=== PATIENT | female | born 1955 | race Caucasian/White ===

== ENCOUNTER 2017-08-23 16:08 | Emergency (ER) | payer MEDICARE, OTHER ==
[~2017-08-23] VITALS: Ht 175.3 cm; Wt 93.0 kg
[~2017-08-23 16:08] MED LIST: ASPI81EC PO; AZIT250 PO; Amiodarone HCl200 MG PO; Bactrim Ds Tab1 EACH PO; CALCIT950; CARV25 PO; CIPRSO BOTHEYES; CLOBETTC TOP; CLOP75 PO; CRESTOR; Cipro250 MG PO; Cleocin HCl300 MG PO; Crestor20 MG PO; ERGO50000 PO; EXEN10PI; Flonase 0.05% N16 GM; GLIP5ER PO; Keflex500 MG PO; LISI5 PO; LYRICA; Lyrica50 MG PO; METF500C PO; Mucinex600 MG PO; OXYC5 PO; PIOG15 PO; PREG25 PO; PREG50 PO; Pyridium100 MG PO; Pyridium200 MG PO; SOLI5 PO; Ultram50 MG PO; ZOLOFT; Zithromax250 MG PO; Zoloft50 MG PO
[2017-08-23] MEDS ORDERED: CEPH500 PO (16:44)
[2017-08-23 16:49] LABS: Source, Urine Clean Catch
[2017-08-23 16:55] LABS: Appearance, Urine Hazy (Clear); Bilirubin, Urine Neg (Neg); Blood, Urine 1+ (Neg); Color, Urine Yellow (P-Yellow); Glucose Qualitative, Urine Neg (Neg); Ketones, Urine Neg (Neg); Leukocyte Esterase, Urine 3+ (Neg); Nitrite, Urine Neg (Neg); Protein, Urine Neg (Neg); Specific Gravity, Urine 1.015 (1.003-1.022); Urobilinogen, Urine 1+ (Normal); pH, Urine 6.5 (5.0-8.0)
[2017-08-23 17:05] LABS: Calcium Oxalate Crystals Many /hpf
[2017-08-23 17:06] LABS: Squamous Epithelial Cells Mod /hpf (Few)
[2017-08-23 17:07] LABS: Bacteria Rare /hpf
[2017-09-07] MEDS ORDERED: CARV6.25 PO (11:57)
[2017-09-07] MEDS ORDERED: TRAM50 PO (12:02)
[2017-09-07] MEDS ORDERED: Flonase 0.05% N16 GM (12:03)
[2017-09-07] MEDS ORDERED: ELIQUIS5 MG PO (12:04)
== END 2017-08-23 16:55 | disposition home or self-care (01) ==
LOC: ER 16:08
PROVIDERS: Physician Assistant
DX: N39.0 Urinary tract infection, site not specified (principal); F32.9 Major depressive disorder, single episode, unspecified; I10 Essential (primary) hypertension; E11.9 Type 2 diabetes mellitus without complications; E78.5 Hyperlipidemia, unspecified; F17.200 Nicotine dependence, unspecified, uncomplicated; Z88.8 Allergy status to other drugs, medicaments and biological substances; Z88.5 Allergy status to narcotic agent; Z79.84 Long term (current) use of oral hypoglycemic drugs; Z79.82 Long term (current) use of aspirin; Z79.899 Other long term (current) drug therapy; Z95.1 Presence of aortocoronary bypass graft; Z95.5 Presence of coronary angioplasty implant and graft; Z90.710 Acquired absence of both cervix and uterus
CPT/HCPCS: 81001; 87086; 99283

== ENCOUNTER 2017-09-08 07:39 | Day surgery (SDC) | payer MEDICARE, OTHER ==
[~2017-09-08] VITALS: Ht 172.7 cm; Wt 95.5 kg
[~2017-09-08 07:39] MED LIST changes: +CARV6.25 PO; +CEPH500 PO; +ELIQUIS5 MG PO; +TRAM50 PO
== END 2017-09-08 10:09 | disposition home or self-care (01) ==
LOC: MHTC 07:39
PROC: 0JPT02Z Removal of Monitoring Device from Trunk Subcutaneous Tissue and Fascia, Open Approach (ICD-10-PCS; principal; 2017-09-08)
DX: Z45.09 Encounter for adjustment and management of other cardiac device (principal); I48.91 Unspecified atrial fibrillation; F17.210 Nicotine dependence, cigarettes, uncomplicated; E11.9 Type 2 diabetes mellitus without complications; I25.10 Atherosclerotic heart disease of native coronary artery without angina pectoris
CPT/HCPCS: 33284; J0690; J7040

== ENCOUNTER → 2017-11-09 | Outpatient (CLI) | payer MEDICARE | END | disposition home or self-care (01) | LOC: LAB SHORT 16:27 → LAB 16:27 | DX: R30.0 Dysuria (principal) | CPT/HCPCS: 87077; 87086; 87186 ==

== ENCOUNTER 2017-12-09 19:29 | Emergency (ER) | payer MEDICARE ==
[~2017-12-09] VITALS: Ht 172.7 cm; Wt 93.0 kg
[2017-12-09 20:01] LABS: Source, Urine Clean Catch
[2017-12-09 20:05] LABS: Blood, Urine 4+ (Neg); Glucose Qualitative, Urine Neg (Neg); Ketones, Urine Neg (Neg); Leukocyte Esterase, Urine 3+ (Neg); Nitrite, Urine Pos (Neg); Protein, Urine 1+ (Neg); Specific Gravity, Urine 1.015 (1.003-1.022); Urobilinogen, Urine 3+ (Normal)
[2017-12-09 20:13] LABS: Appearance, Urine Hazy (Clear); Bilirubin, Urine 2+ (Neg); Color, Urine Orange (P-Yellow)
[2017-12-09 20:14] LABS: White Blood Cells, Urine TNTC /hpf (0-5)
[2017-12-09 20:15] LABS: Bacteria Mod /hpf; Squamous Epithelial Cells Few /hpf (Few)
[2017-12-09] MEDS ORDERED: Bactrim Ds Tab1 EACH PO (20:56)
== END 2017-12-09 21:01 | disposition home or self-care (01) ==
LOC: ER 19:29
PROVIDERS: Nurse Practitioner Family
DX: N39.0 Urinary tract infection, site not specified (principal); Z88.8 Allergy status to other drugs, medicaments and biological substances; Z88.5 Allergy status to narcotic agent; Z79.84 Long term (current) use of oral hypoglycemic drugs; Z79.899 Other long term (current) drug therapy; Z86.73 Personal history of transient ischemic attack (TIA), and cerebral infarction without residual deficits; F32.9 Major depressive disorder, single episode, unspecified; I10 Essential (primary) hypertension; E78.5 Hyperlipidemia, unspecified; E11.9 Type 2 diabetes mellitus without complications; F17.200 Nicotine dependence, unspecified, uncomplicated
CPT/HCPCS: 81001; 87077; 87086; 87186; 99283

== ENCOUNTER 2018-03-20 16:04 | Emergency (ER) | payer MEDICARE, OTHER ==
[~2018-03-20] VITALS: Ht 172.7 cm; Wt 90.7 kg
[2018-03-20] MEDS ORDERED: ELIQUIS5 MG PO (16:28)
[2018-03-20] MEDS ORDERED: CEPH500 PO (16:40)
[2018-03-20 16:44] LABS: Source, Urine Clean Catch
[2018-03-20 17:05] LABS: Appearance, Urine Hazy (Clear); Bilirubin, Urine Neg (Neg); Blood, Urine 2+ (Neg); Color, Urine Yellow (P-Yellow); Glucose Qualitative, Urine Neg (Neg); Ketones, Urine 1+ (Neg); Leukocyte Esterase, Urine 3+ (Neg); Nitrite, Urine Neg (Neg); Protein, Urine 2+ (Neg); Urobilinogen, Urine 1+ (Normal)
[2018-03-20 18:53] LABS: White Blood Cells, Urine 25-50 /hpf (0-5)
[2018-03-20 18:54] LABS: Bacteria Mod /hpf; Squamous Epithelial Cells Few /hpf (Few)
== END 2018-03-20 16:41 | disposition home or self-care (01) ==
LOC: ER 16:04
PROVIDERS: Physician Assistant
DX: N39.0 Urinary tract infection, site not specified (principal); F32.9 Major depressive disorder, single episode, unspecified; I10 Essential (primary) hypertension; E78.5 Hyperlipidemia, unspecified; E11.9 Type 2 diabetes mellitus without complications; F17.200 Nicotine dependence, unspecified, uncomplicated; Z88.8 Allergy status to other drugs, medicaments and biological substances; Z88.5 Allergy status to narcotic agent; Z79.899 Other long term (current) drug therapy; Z79.84 Long term (current) use of oral hypoglycemic drugs
CPT/HCPCS: 81001; 87086; 99283

== ENCOUNTER 2018-08-20 12:59 | Emergency (ER) | payer MEDICARE, OTHER ==
[~2018-08-20] VITALS: Ht 165.1 cm; Wt 72.6 kg
[2018-08-20 13:40] LABS: BASOPHILS ABSOLUTE AUTO 0.02 K/mm3 (0.00-0.23); BASOPHILS PERCENT AUTO 0 % (0-2); EOSINOPHILS ABSOLUTE AUTO 0.07 K/mm3 (0.00-0.68); EOSINOPHILS PERCENT AUTO 1 % (0-6); Hematocrit 38.8 % (33.0-51.0); Hemoglobin 12.6 g/dL (11.5-16.0); IMMATURE GRAN ABSOLUTE AUTO 0.01 K/mm3 (0.00-0.10); IMMATURE GRAN PERCENT AUTO 0 % (0-1); LYMPHOCYTES PERCENT AUTO 34 % (21-46); MONOCYTES ABSOLUTE AUTO 0.47 K/mm3 (0.16-1.47); MONOCYTES PERCENT AUTO 8 % (4-13); Mean Corpuscular HGB 29.7 pg (26.0-34.0); Mean Corpuscular HGB Conc 32.5 g/dL (31.5-36.5); Mean Corpuscular Volume 92 fL (80-100); NEUTROPHILS ABSOLUTE AUTO 3.14 K/mm3 (1.96-9.15); NEUTROPHILS PERCENT AUTO 56 % (41-73); Platelet Count 160 K/mm3 (150-400); RDW Coefficient Variation 13.2 % (11.7-14.2); RDW Standard Deviation 44.8 fL (35.1-46.3); Red Blood Cell Count 4.24 M/mm3 (3.80-5.20); White Blood Cell Count 5.61 K/mm3 (4.00-11.30)
[2018-08-20 14:10] LABS: Alanine Aminotransfer (ALT/SGP 17 U/L (12-78); Albumin, Blood 3.6 g/dL (3.4-5.0); Albumin/Globulin Ratio 1.1 (0.8-1.8); Alk Phos 44 U/L (50-136); Anion Gap 8 mmol/L (6-16); Aspartate Aminotrans (AST/SGOT 19 U/L (12-37); Bilirubin, Total 0.5 mg/dL (0.1-1.0); Blood Urea Nitrogen 13 mg/dL (8-24); Bun/Creatinine Ratio 17.9 (12.0-20.0); CO2, Blood 26 mmol/L (21-32); Chloride, Blood 109 mmol/L (98-108); Creatinine, Blood 0.73 mg/dL (0.40-1.00); Globulin, Blood 3.2 g/dL (2.2-4.0); Glomerular Filtration Rate >60 (60-); Glucose, Blood 116 mg/dL (70-99); Potassium, Blood 4.4 mmol/L (3.5-5.5); Sodium, Blood 143 mmol/L (136-145); Total Protein, Blood 6.8 g/dL (6.4-8.2)
[2018-08-20] MEDS ORDERED: ALBU90OI INH (14:33)
[2018-08-20] MEDS ORDERED: Prednisone20 MG PO (14:33)
== END 2018-08-20 15:22 | disposition home or self-care (01) ==
LOC: ER 12:59
PROVIDERS: Emergency Medicine
DX: J40 Bronchitis, not specified as acute or chronic (principal); F17.200 Nicotine dependence, unspecified, uncomplicated; F32.9 Major depressive disorder, single episode, unspecified; I10 Essential (primary) hypertension; E78.5 Hyperlipidemia, unspecified; E11.9 Type 2 diabetes mellitus without complications; Z86.73 Personal history of transient ischemic attack (TIA), and cerebral infarction without residual deficits; Z88.5 Allergy status to narcotic agent; Z88.8 Allergy status to other drugs, medicaments and biological substances; Z79.899 Other long term (current) drug therapy; Z79.84 Long term (current) use of oral hypoglycemic drugs
CPT/HCPCS: 36415; 71046; 80053; 83880; 85025; 93005; 93010; 94640; 99284-25

== ENCOUNTER → 2018-08-28 | Outpatient (CLI) | payer MEDICARE, OTHER ==
[~2018-08-28] MED LIST changes: +ALBU90OI INH; +Prednisone20 MG PO
== END | disposition home or self-care (01) ==
LOC: LAB 13:15 → LAB SHORT 13:15
DX: R30.0 Dysuria (principal)
CPT/HCPCS: 87077; 87086; 87186

== ENCOUNTER → 2018-10-26 | Outpatient (CLI) | payer MEDICARE | END | disposition home or self-care (01) | LOC: LAB 18:00 → LAB SHORT 18:00 | DX: R30.0 Dysuria (principal) | CPT/HCPCS: 87077; 87086; 87186 ==

== ENCOUNTER → 2020-03-16 | Outpatient (CLI) | payer OTHER ==
[~2020-03-16] MED LIST changes: +Colace100 MG PO; +GLIP5 PO; +Magnesium Citr296 ML PO; +Oxybutynin Chlo15 MG PO; +ROSUVASTATIN CA20 MG PO
[2020-03-16 19:21] LABS: Blood, Urine 5+ (Neg); Glucose Qualitative, Urine Neg (Neg); Ketones, Urine Neg (Neg); Leukocyte Esterase, Urine 3+ (Neg); Nitrite, Urine Pos (Neg); Protein, Urine 2+ (Neg); Urobilinogen, Urine 3+ (Normal)
[2020-03-16 19:29] LABS: Bilirubin, Urine 3+ (Neg); Color, Urine Orange (P-Yellow)
[2020-03-16 19:30] LABS: Appearance, Urine Cloudy (Clear); Bacteria Many /hpf; Red Blood Cells, Urine TNTC /hpf (0-2); Squamous Epithelial Cells Few /hpf (Few); Transitional Epithelial Cells Few /hpf (0-Rare); White Blood Cells, Urine TNTC /hpf (0-5)
== END | disposition home or self-care (01) ==
LOC: LAB SHORT 17:58 → LAB 17:58
PROVIDERS: Family Medicine
DX: R30.0 Dysuria (principal)
CPT/HCPCS: 81001; 87077; 87086; 87186

== ENCOUNTER 2020-04-22 17:58 | Emergency (ER) | payer OTHER | END 2020-04-22 19:02 | disposition left against medical advice (07) | LOC: ER 17:58 | DX: Z53.21 Procedure and treatment not carried out due to patient leaving prior to being seen by health care provider (principal) ==

== ENCOUNTER 2021-02-20 10:39 | Day surgery (SDC) | payer OTHER ==
[~2021-02-20] VITALS: Ht 172.7 cm; Wt 87.8 kg
[~2021-02-20 10:39] MED LIST changes: +AMIODARONE HCL200 M1 PO; +ELIQUIS5 M2 PO; +GLUCOPHAGE1000 M1 PO; +LOSA50 PO; +NITR100CA PO
== END 2021-02-20 12:22 | disposition home or self-care (01) ==
LOC: ORSCSDS 10:39
PROVIDERS: Internal Medicine Gastroenterology
PROC: 0DBN8ZX Excision of Sigmoid Colon, Via Natural or Artificial Opening Endoscopic, Diagnostic (ICD-10-PCS; principal; 2021-02-20 11:45)
PROC: 0DBH8ZX Excision of Cecum, Via Natural or Artificial Opening Endoscopic, Diagnostic (ICD-10-PCS; principal; 2021-02-20 11:45)
DX: R19.4 Change in bowel habit (principal); D12.0 Benign neoplasm of cecum; D12.5 Benign neoplasm of sigmoid colon; K64.8 Other hemorrhoids; Z86.010 Personal history of colon polyps; F17.210 Nicotine dependence, cigarettes, uncomplicated; I25.10 Atherosclerotic heart disease of native coronary artery without angina pectoris; E11.9 Type 2 diabetes mellitus without complications; I48.0 Paroxysmal atrial fibrillation; I10 Essential (primary) hypertension; E78.5 Hyperlipidemia, unspecified; Z79.01 Long term (current) use of anticoagulants; Z79.84 Long term (current) use of oral hypoglycemic drugs; Z79.899 Other long term (current) drug therapy
CPT/HCPCS: 82947; 88305; J2405; J2704; J7120

== ENCOUNTER 2021-05-21 09:55 | Emergency (ER) | payer OTHER ==
[~2021-05-21] VITALS: Ht 170.2 cm; Wt 90.7 kg
[2021-05-21 11:17] LABS: BASOPHILS ABSOLUTE AUTO 0.05 K/mm3 (0.00-0.23); BASOPHILS PERCENT AUTO 1 % (0-2); EOSINOPHILS ABSOLUTE AUTO 0.11 K/mm3 (0.00-0.68); EOSINOPHILS PERCENT AUTO 1 % (0-6); Hematocrit 43.1 % (33.0-51.0); Hemoglobin 13.6 g/dL (11.5-16.0); IMMATURE GRAN ABSOLUTE AUTO 0.06 K/mm3 (0.00-0.10); IMMATURE GRAN PERCENT AUTO 1 % (0-1); LYMPHOCYTES ABSOLUTE AUTO 2.17 K/mm3 (0.84-5.20); LYMPHOCYTES PERCENT AUTO 26 % (21-46); MONOCYTES ABSOLUTE AUTO 0.37 K/mm3 (0.16-1.47); MONOCYTES PERCENT AUTO 5 % (4-13); Mean Corpuscular HGB 29.4 pg (26.0-34.0); Mean Corpuscular HGB Conc 31.6 g/dL (31.5-36.5); Mean Corpuscular Volume 93 fL (80-100); NEUTROPHILS ABSOLUTE AUTO 5.52 K/mm3 (1.96-9.15); NEUTROPHILS PERCENT AUTO 67 % (41-73); RDW Coefficient Variation 13.9 % (11.7-14.2); RDW Standard Deviation 47.4 fL (35.1-46.3); Red Blood Cell Count 4.63 M/mm3 (3.80-5.20); White Blood Cell Count 8.28 K/mm3 (4.00-11.30)
[2021-05-21 11:26] LABS: Alanine Aminotransfer (ALT/SGP 16 U/L (12-78); Albumin, Blood 3.5 g/dL (3.4-5.0); Alk Phos 49 U/L (50-136); Anion Gap 6 mmol/L (6-16); Aspartate Aminotrans (AST/SGOT 10 U/L (12-37); Bilirubin, Total 0.3 mg/dL (0.1-1.0); Blood Urea Nitrogen 14 mg/dL (8-24); Bun/Creatinine Ratio 24.2 (12.0-20.0); CO2, Blood 26 mmol/L (21-32); Calcium, Blood 9.3 mg/dL (8.5-10.1); Chloride, Blood 107 mmol/L (98-108); Creatinine, Blood 0.58 mg/dL (0.40-1.00); Globulin, Blood 3.4 g/dL (2.2-4.0); Glomerular Filtration Rate >60 (60-); Glucose, Blood 178 mg/dL (70-99); Potassium, Blood 4.2 mmol/L (3.5-5.5); Sodium, Blood 139 mmol/L (136-145); Total Protein, Blood 6.9 g/dL (6.4-8.2); Troponin I <0.015 ng/mL (0.000-0.040)
[2021-05-21 11:42] LABS: Mean Platelet Volume 10.7 fL (9.1-12.4); Platelet Count 245 K/mm3 (150-400)
[2021-05-21] MEDS ORDERED: PIOG15 PO (13:19)
== END 2021-05-21 13:40 | disposition home or self-care (01) ==
LOC: ER 09:55
PROVIDERS: Physician Assistant
DX: I48.0 Paroxysmal atrial fibrillation (principal); I10 Essential (primary) hypertension; E78.5 Hyperlipidemia, unspecified; E11.9 Type 2 diabetes mellitus without complications; F17.210 Nicotine dependence, cigarettes, uncomplicated; Z88.6 Allergy status to analgesic agent; Z88.5 Allergy status to narcotic agent; Z88.8 Allergy status to other drugs, medicaments and biological substances; Z88.1 Allergy status to other antibiotic agents; Z79.899 Other long term (current) drug therapy; Z79.84 Long term (current) use of oral hypoglycemic drugs
CPT/HCPCS: 71046; 80053; 84443; 84484; 85025; 93005; 93010; 99284-25

== ENCOUNTER 2021-06-24 12:41 | Emergency (ER) | payer OTHER ==
[~2021-06-24] VITALS: Ht 170.2 cm; Wt 90.7 kg
[2021-06-24] MEDS ORDERED: TRAM50 PO (14:20)
== END 2021-06-24 14:34 | disposition home or self-care (01) ==
LOC: ER 12:41
DX: S42.201A Unspecified fracture of upper end of right humerus, initial encounter for closed fracture (principal); E11.9 Type 2 diabetes mellitus without complications; E78.5 Hyperlipidemia, unspecified; I10 Essential (primary) hypertension; Z86.73 Personal history of transient ischemic attack (TIA), and cerebral infarction without residual deficits; F17.210 Nicotine dependence, cigarettes, uncomplicated; Z88.5 Allergy status to narcotic agent; Z88.6 Allergy status to analgesic agent; Z88.8 Allergy status to other drugs, medicaments and biological substances; Z79.899 Other long term (current) drug therapy; Z79.84 Long term (current) use of oral hypoglycemic drugs; W18.30XA Fall on same level, unspecified, initial encounter
CPT/HCPCS: 29105; 73030; 73060; 96374; 96375; 99284-25; A9270; J2270; J2405

== ENCOUNTER 2021-09-09 21:17 | Observation (INO) | payer OTHER ==
[~2021-09-09] VITALS: Ht 172.7 cm; Wt 88.5 kg
[~2021-09-09 21:17] MED LIST changes: +Oxybutynin Chlor5 M1 PO
[2021-09-09 22:18] LABS: BASOPHILS ABSOLUTE AUTO 0.02 K/mm3 (0.00-0.23); BASOPHILS PERCENT AUTO 0 % (0-2); EOSINOPHILS PERCENT AUTO 0 % (0-6); Hematocrit 40.9 % (33.0-51.0); Hemoglobin 13.5 g/dL (11.5-16.0); IMMATURE GRAN PERCENT AUTO 1 % (0-1); LYMPHOCYTES ABSOLUTE AUTO 1.07 K/mm3 (0.84-5.20); LYMPHOCYTES PERCENT AUTO 10 % (21-46); MONOCYTES ABSOLUTE AUTO 0.49 K/mm3 (0.16-1.47); MONOCYTES PERCENT AUTO 5 % (4-13); Mean Corpuscular HGB 29.9 pg (26.0-34.0); Mean Corpuscular Volume 91 fL (80-100); Mean Platelet Volume 10.7 fL (9.1-12.4); NEUTROPHILS ABSOLUTE AUTO 8.81 K/mm3 (1.96-9.15); NEUTROPHILS PERCENT AUTO 84 % (41-73); Platelet Count 248 K/mm3 (150-400); RDW Coefficient Variation 13.5 % (11.7-14.2); RDW Standard Deviation 44.7 fL (35.1-46.3); Red Blood Cell Count 4.52 M/mm3 (3.80-5.20); White Blood Cell Count 10.49 K/mm3 (4.00-11.30)
[2021-09-09 22:35] LABS: Anion Gap 10 mmol/L (6-16); Blood Urea Nitrogen 21 mg/dL (8-24); Bun/Creatinine Ratio 32.2 (12.0-20.0); CO2, Blood 25 mmol/L (21-32); Calcium, Blood 9.6 mg/dL (8.5-10.1); Chloride, Blood 102 mmol/L (98-108); Creatinine, Blood 0.65 mg/dL (0.40-1.00); Glomerular Filtration Rate >60 (60-); Glucose, Blood 316 mg/dL (70-99); Potassium, Blood 4.4 mmol/L (3.5-5.5); Sodium, Blood 137 mmol/L (136-145)
[2021-09-10 05:25] LABS: BASOPHILS ABSOLUTE AUTO 0.01 K/mm3 (0.00-0.23); BASOPHILS PERCENT AUTO 0 % (0-2); EOSINOPHILS ABSOLUTE AUTO 0.02 K/mm3 (0.00-0.68); EOSINOPHILS PERCENT AUTO 0 % (0-6); Hemoglobin 12.3 g/dL (11.5-16.0); IMMATURE GRAN ABSOLUTE AUTO 0.07 K/mm3 (0.00-0.10); IMMATURE GRAN PERCENT AUTO 1 % (0-1); LYMPHOCYTES PERCENT AUTO 28 % (21-46); MONOCYTES ABSOLUTE AUTO 0.67 K/mm3 (0.16-1.47); MONOCYTES PERCENT AUTO 8 % (4-13); Mean Corpuscular HGB 29.6 pg (26.0-34.0); Mean Corpuscular HGB Conc 32.4 g/dL (31.5-36.5); Mean Corpuscular Volume 92 fL (80-100); Mean Platelet Volume 10.6 fL (9.1-12.4); NEUTROPHILS ABSOLUTE AUTO 5.56 K/mm3 (1.96-9.15); NEUTROPHILS PERCENT AUTO 64 % (41-73); Platelet Count 218 K/mm3 (150-400); RDW Coefficient Variation 13.4 % (11.7-14.2); RDW Standard Deviation 45.4 fL (35.1-46.3); Red Blood Cell Count 4.15 M/mm3 (3.80-5.20); White Blood Cell Count 8.73 K/mm3 (4.00-11.30)
[2021-09-10 05:39] LABS: Anion Gap 6 mmol/L (6-16); Blood Urea Nitrogen 21 mg/dL (8-24); Bun/Creatinine Ratio 35.5 (12.0-20.0); CO2, Blood 27 mmol/L (21-32); Chloride, Blood 105 mmol/L (98-108); Creatinine, Blood 0.59 mg/dL (0.40-1.00); Glomerular Filtration Rate >60 (60-); Glucose, Blood 213 mg/dL (70-99); Potassium, Blood 3.9 mmol/L (3.5-5.5); Sodium, Blood 138 mmol/L (136-145)
--- NOTE | 2021-09-10 06:03 | NUR ---
PT CAME IN FROM THE ED DUE TO HER AICD SHOCKING 6 TIMES. AFTER INTERPRETATION DOWN IN THE ED IT LOOKS LIKE HER RHYTHM DURING THE SHOCK WAS VFIB, WHICH WHY THE AICD MUST HAVE GONE OFF. THE PT DOES NOT C/O PAIN, N/V, TINGING SENSATION, OR SOB ON ARRIVAL TO UNIT. PT IS ALERT AND ORIENTED X4. PT TELE MONITORED SHOWING NSR 60-70S. NO ACUTE EVENTS SINCE ADMISSION, CALL LIGHT AND BELONGINGS WITHIN REACH.
[2021-09-10] MEDS ORDERED: Ventolin/Prove6.7 GM INH (15:31)
[2021-09-10] MEDS ORDERED: MONT10T PO (15:32)
[2021-09-10] MEDS ORDERED: OXYCODONE-ACET1 EAC3 PO (15:34)
[2021-09-10] MEDS ORDERED: Carvedilol12.5 MG PO (16:04)
[2021-09-10] MEDS ORDERED: PACERONE PO (16:05)
[2021-09-10] MEDS ORDERED: Amlodipine Bes2.5 MG PO (16:06)
[2021-09-10] MEDS ORDERED: ASPI81CH PO (16:06)
[2021-09-10] MEDS ORDERED: DOXY100 PO (16:08)
[2021-09-10] MEDS ORDERED: NICO21TP TOP (16:08)
[2021-09-10] MEDS ORDERED: PANT40 PO (16:08)
[2021-09-10] MEDS ORDERED: PRED20 PO (16:09)
--- NOTE | 2021-09-10 16:53 | NUR ---
DISCHARGE PATIENT TRANSPORTED VIA WHEELCHAIR TO PRIVATE VEHICLE. DISCHARGE INSTRUCTIONS EXPLAINED TO PATIENT. PATIENT STATED UNDERSTANDING. PACKET SENT WITH PATIENT. IV REMOVED WITHOUT DIFFICULTY. TELE REMOVED WITHOUT DIFFICULTY. MEDICATIONS FAXED TO PREFERRED PHARMACY. BINDER CHAINSTITCH OFFICE TO CALL PATIENT FOR FOLLOW UP. PATIENT ALREADY HAS FOLLOW UP WITH PCP SCHEDULED FOR NEXT WEEK. BELONGINGS SENT WITH PATIENT.
== END 2021-09-10 16:59 | disposition home or self-care (01) ==
LOC: ER 21:17 → MEDS 21:18 → ER 09-10 02:16 → MEDS 09-10 03:07
PROVIDERS: Family Medicine; Physician Assistant; ADMIT Internal Medicine
DX: I48.0 Paroxysmal atrial fibrillation (principal); I25.10 Atherosclerotic heart disease of native coronary artery without angina pectoris; I10 Essential (primary) hypertension; E78.5 Hyperlipidemia, unspecified; E11.51 Type 2 diabetes mellitus with diabetic peripheral angiopathy without gangrene; J44.1 Chronic obstructive pulmonary disease with (acute) exacerbation; F17.210 Nicotine dependence, cigarettes, uncomplicated; Z86.73 Personal history of transient ischemic attack (TIA), and cerebral infarction without residual deficits; Z95.810 Presence of automatic (implantable) cardiac defibrillator; Z95.1 Presence of aortocoronary bypass graft; Z95.5 Presence of coronary angioplasty implant and graft; Z79.82 Long term (current) use of aspirin; Z79.4 Long term (current) use of insulin
CPT/HCPCS: 36415; 71045; 80048; 82947; 83735; 84484; 85025; 93005; 93010; 93306; A9270; J7512

== ENCOUNTER 2022-01-12 22:22 | Emergency (ER) | payer OTHER ==
[~2022-01-12] VITALS: Ht 170.2 cm; Wt 88.5 kg
[~2022-01-12 22:22] MED LIST changes: +ASPI81CH PO; +Amlodipine Bes2.5 MG PO; +Carvedilol12.5 MG PO; +DOXY100 PO; +MONT10T PO; +NICO21TP TOP; +OXYCODONE-ACET1 EAC3 PO; +PANT40 PO; +PRED20 PO; +Ventolin/Prove6.7 GM INH
[2022-01-18] MEDS ORDERED: SERT100 PO (03:38)
[2022-01-18] MEDS ORDERED: 1/2 NS 250ml250 ML (03:38)
== END 2022-01-13 00:47 | disposition home or self-care (01) ==
LOC: ER 22:22
DX: S09.90XA Unspecified injury of head, initial encounter (principal); I10 Essential (primary) hypertension; E78.5 Hyperlipidemia, unspecified; E11.9 Type 2 diabetes mellitus without complications; F17.210 Nicotine dependence, cigarettes, uncomplicated; W19.XXXA Unspecified fall, initial encounter; Z95.1 Presence of aortocoronary bypass graft; Z95.5 Presence of coronary angioplasty implant and graft; Z79.82 Long term (current) use of aspirin; Z79.52 Long term (current) use of systemic steroids; Z79.01 Long term (current) use of anticoagulants; Z79.899 Other long term (current) drug therapy
CPT/HCPCS: 70450; 99283-25

== ENCOUNTER 2022-02-04 05:37 | Day surgery (SDC) | payer OTHER ==
[~2022-02-04] VITALS: Ht 170.2 cm; Wt 86.0 kg
[~2022-02-04 05:37] MED LIST changes: +1/2 NS 250ml250 ML; +SERT100 PO
--- NOTE | 2022-02-04 16:59 | NUR ---
CARE ASSUMPTION/SHIFT SUMMARY THIS RN RECEIVED THE PATIEN FROM THE [facility] VIA PCU BED. PATIENT WAS IN NO DISTRESS WHEN ARRIVING. PATIENT IS HERE S/P DUAL PACER PLACEMENT AND NEW WIRE PLACEMENT FOR EXTENDED RECOVERY. PATIENT LEFT CHEST HAS A PRESSURE DRESSING AND ICE OFF AND ON APPLIED TO THE SITE. THE SITE IS NONTENDER, CLEAN DRY, NO BLEEDING OR SWELLING. PATIENT REPROTS NO PAIN AT SITE. PATIENT IS ALERT AND ORIENTED X4. PERRLA. NEURO INACT. VSS. PATIENT REPROTS NO CHEST PAIN/PRESSURE. STRONG PULSES BILATERALLY. PATIENT REPORTS NO SHORTNESS OF BREATH. CLEAR UPPER LOBES BILATERALLY AND DIM LOBES BILATERALLY. PATIENT ABD IS SOFT NONTENDER AND ACTIVE. PATIENT CAN URINATE WITH NO DIFFICULTY. PATIENT IS INDEPDENED IN THE ROOM. CALLS TO BE UNHOOKED FROM BLOOD PRESSURE CUFF AND SPO2 DUE TO HAVING POST OP VITALS DONE. PATIENT USES CALL LIGHT APPROPRIATELY. SITE REMAINS UNCHANGED THIS SHIFT. PLAN OF CARE UP TO DATE. PATIENT SHOULD DISCHARGE IN THE AM LONG THERE ARE NO ACUTE EVENTS OVER THE NIGHT. PATIENT EDUCATED ON LIMITED MOVEMENT WITH THAT LEFT ARM. CALL LIGHT WITHIN REACH. BED IN LOWEST POSITION. WILL CONTINUE TO MONITOR AND PROVIDE CARE UNTIL HAND OFF WITH NEXT SHIFT.
--- NOTE | 2022-02-05 05:24 | NUR ---
shift summary pt rested well through the night. alert and oriented, able to make needs known. cooperative with plan of care. sats >95% on room air. tele reads paced at 60. no c/o chest pain. incisional pain to a minimum. medicated with tylenol one time. voided to bedside commode. vss. call light within reach, bed in lowest position. will continue to monitor.
[2022-02-05] MEDS ORDERED: CEPH500 PO (11:11)
[2022-02-05] MEDS ORDERED: NICO21TP TOP (11:11)
== END 2022-02-05 13:06 | disposition home or self-care (01) ==
LOC: MHTC 05:37 → PCU 11:29 → MHTC 02-05 13:06
DX: Z45.02 Encounter for adjustment and management of automatic implantable cardiac defibrillator (principal); E11.51 Type 2 diabetes mellitus with diabetic peripheral angiopathy without gangrene; I48.91 Unspecified atrial fibrillation; I49.5 Sick sinus syndrome; I25.810 Atherosclerosis of coronary artery bypass graft(s) without angina pectoris; E78.5 Hyperlipidemia, unspecified; I10 Essential (primary) hypertension; Z98.1 Arthrodesis status; Z79.01 Long term (current) use of anticoagulants; Z79.84 Long term (current) use of oral hypoglycemic drugs; Z88.8 Allergy status to other drugs, medicaments and biological substances; Z88.5 Allergy status to narcotic agent
CPT/HCPCS: 33222; 33263; 37248; 71045; 71046; 75820; 76937; 82947; 99152; 99153; A9270; C1721; C1725; C1769; C1781; C1887; C1894; C1898; J0360; J0690; J1644; J2250; J2405; J3010; J3370; J7030; J7040; J7060; Q9967

== ENCOUNTER → 2022-02-23 | Outpatient (CLI) | payer OTHER | END | disposition home or self-care (01) | LOC: LAB SHORT 13:53 → LAB 13:53 | DX: R30.0 Dysuria (principal) | CPT/HCPCS: 87077; 87086; 87186 ==

== ENCOUNTER 2022-03-12 17:26 | Emergency (ER) | payer OTHER ==
[~2022-03-12] VITALS: Ht 167.6 cm; Wt 88.5 kg
== END 2022-03-12 21:12 | disposition home or self-care (01) ==
LOC: ER 17:26
DX: M16.11 Unilateral primary osteoarthritis, right hip (principal); E78.5 Hyperlipidemia, unspecified; I25.10 Atherosclerotic heart disease of native coronary artery without angina pectoris; E11.9 Type 2 diabetes mellitus without complications; I10 Essential (primary) hypertension; F17.200 Nicotine dependence, unspecified, uncomplicated; Z88.5 Allergy status to narcotic agent; Z88.8 Allergy status to other drugs, medicaments and biological substances; Z79.899 Other long term (current) drug therapy; Z79.01 Long term (current) use of anticoagulants; Z79.84 Long term (current) use of oral hypoglycemic drugs
CPT/HCPCS: 73502

== ENCOUNTER 2022-06-03 07:47 | Day surgery (SDC) | payer OTHER | END 2022-06-03 23:00 | disposition home or self-care (01) | LOC: MHTC 07:47 | DX: I48.0 Paroxysmal atrial fibrillation (principal); Z95.810 Presence of automatic (implantable) cardiac defibrillator; I73.9 Peripheral vascular disease, unspecified; I25.810 Atherosclerosis of coronary artery bypass graft(s) without angina pectoris; E78.5 Hyperlipidemia, unspecified; Z95.1 Presence of aortocoronary bypass graft; Z79.01 Long term (current) use of anticoagulants; Z53.9 Procedure and treatment not carried out, unspecified reason | CPT/HCPCS: 93005; 93010 ==

== ENCOUNTER 2022-08-07 08:17 | Day surgery (SDC) | payer OTHER ==
[~2022-08-07] VITALS: Ht 170.2 cm; Wt 90.4 kg
--- NOTE | 2022-08-07 08:46 | NUR ---
08/07/22 0846 Sheila Monahan AT 0843 PLEDGET AT [phone]
== END 2022-08-07 10:05 | disposition home or self-care (01) ==
LOC: ORSCSDS 08:17
PROVIDERS: Ophthalmology
PROC: 08RJ3JZ Replacement of Right Lens with Synthetic Substitute, Percutaneous Approach (ICD-10-PCS; principal; 2022-08-07 09:30)
DX: H25.11 Age-related nuclear cataract, right eye (principal); I10 Essential (primary) hypertension; E11.9 Type 2 diabetes mellitus without complications; I48.91 Unspecified atrial fibrillation; Z79.01 Long term (current) use of anticoagulants; I25.10 Atherosclerotic heart disease of native coronary artery without angina pectoris; E78.5 Hyperlipidemia, unspecified; F17.210 Nicotine dependence, cigarettes, uncomplicated; J45.909 Unspecified asthma, uncomplicated; Z79.899 Other long term (current) drug therapy; F41.9 Anxiety disorder, unspecified
CPT/HCPCS: 82947; J2001; J2250; J2405; J3010; J3301; J7040; V2632

== ENCOUNTER → 2023-07-17 | Outpatient (CLI) | payer BC, OTHER | LOC: LAB 17:22 → LAB SHORT 17:22 | DX: N10 Acute pyelonephritis (principal) | CPT/HCPCS: 87077; 87086; 87186 ==

== ENCOUNTER 2023-12-29 06:11 | Day surgery (SDC) | payer BC, OTHER ==
[2023-12-29] VITALS (13 sets, daily range): BP systolic 82–131; BP diastolic 56–93
[~2023-12-29] VITALS: Ht 167.6 cm; Wt 94.2 kg
[~2023-12-29 06:11] MED LIST changes: +Robaxin750 MG PO
[2023-12-29] MEDS ORDERED: CeFAZolin Sodium 2,000 MG in NS 100 ML IV SCH ×2 (06:25→16:00)
[2023-12-29] MEDS ORDERED: Lactated Ringer's 1,000 ML IV SCH ×2 (06:25→09:35)
[2023-12-29] MEDS ORDERED: Ropivacaine 0.5% HCl/Pf 123.125 MG,EPINEPHrine HCL 0.25 MG,Ketorolac Tromethamine 15 MG... INFIL SCH (06:25)
[2023-12-29] MEDS ORDERED: OxyCODONE HCL 10 MG TABCR PO SCH (06:25)
[2023-12-29] MEDS ORDERED: Tranexamic Acid 100 ML IV SCH (06:25)
[2023-12-29] MEDS ORDERED: Acetaminophen 500 MG Tab PO SCH ×2 (06:30→16:00)
[2023-12-29] MEDS ORDERED: Lidocaine HCl 2% 20 ML MDV ONE (06:55)
[2023-12-29] MEDS ORDERED: propofoL 20 ML IV ONE ×3 (06:55→07:27)
[2023-12-29] MEDS ORDERED: FentaNYL Citrate 50 MCG/ML 2 ML Injection ONE (06:56)
[2023-12-29] MEDS ORDERED: Bupivacaine 0.5% HCl 5 MG/ML 30MLVIAL ONE (06:58)
[2023-12-29] MEDS ORDERED: Lidocaine HCl 1% 5 ML SYR INJ ONE (07:05)
[2023-12-29] MEDS ORDERED: Ondansetron HCl 2 MG / ML 2ML Vial IV PRN ×2 (07:10→09:40)
[2023-12-29] MEDS ORDERED: HYDROmorphone HCl/Pf 1MG SYR IV PRN ×2 (07:10→09:30)
[2023-12-29] MEDS ORDERED: FentaNYL Citrate 50 MCG/ML 2 ML Injection IV PRN ×2 (07:10)
[2023-12-29] MEDS ORDERED: Midazolam HCl 1MG / ML 2ML Vial ONE (07:21)
[2023-12-29] MEDS ORDERED: Chlorhexidine Mouth Care 15 ML UDC MT SCH (07:25)
--- NOTE | 2023-12-29 07:28 | NUR ---
DR ANAND CONFIRMED WITH PATIENT ALLERGIES AND DISCUSSED VERSED. PATIENT STATES SHE HAS HAD VERSED BEFORE AND TOLERATES WITH NO ALLERGIC REACTION, DESPIT ALLERGY LIST INCLUDING LORAZAPAM.
[2023-12-29] MEDS ORDERED: Midazolam HCl 1MG / ML 2ML Vial IV ONE (07:30)
--- NOTE | 2023-12-29 07:40 | NUR ---
PATIENT'S GLASSES BROUGHT TO PACU FOR SAFE KEEPING DURING SURGERY. PATIENT LEFT DENTURES AT HOME.
[2023-12-29] MEDS ORDERED: Phenylephrine HCl 100 MCG/ML-NS 10MLSYR (1MG/10ML) ONE ×2 (07:43→08:26)
[2023-12-29] MEDS ORDERED: Dexamethasone Sod Phos 10 MG/ML 1ML VIAL ONE (08:08)
[2023-12-29] MEDS ORDERED: Ondansetron HCl 2 MG / ML 2ML Vial ONE (08:08)
[2023-12-29] MEDS ORDERED: ePHEDrine Sulfate 50 MG/ML 1ML Injection ONE (08:10)
[2023-12-29] MEDS ORDERED: Phenylephrine HCl 10mg/ml 1 ml Vial ONE (08:27)
[2023-12-29] MEDS ORDERED: Lactated Ringer's 1,000 ML IV ONE (09:15)
[2023-12-29] MEDS ORDERED: Albuterol 2.5 MG/3 ML VIAL INH PRN (09:25)
[2023-12-29] MEDS ORDERED: Methocarbamol 500 MG Tab PO PRN (09:25)
[2023-12-29] MEDS ORDERED: OxyCODONE HCL 5 MG TAB PO PRN ×2 (09:25→09:30)
[2023-12-29] MEDS ORDERED: Prochlorperazine Edisylate 10 mg Vial IV PRN (09:30)
[2023-12-29] MEDS ORDERED: Bisacodyl 10 MG Supp PR PRN (09:30)
[2023-12-29] MEDS ORDERED: DiphenhydrAMINE HCL 25 MG Cap PO PRN (09:30)
[2023-12-29] MEDS ORDERED: Metoclopramide HCl 5MG / ML 2ML Vial IV PRN (09:35)
[2023-12-29] MEDS ORDERED: Magnesium Hydroxide Conc 10 ML UDC PO PRN (09:35)
[2023-12-29] MEDS ORDERED: Promethazine HCl 25 MG Tab PO PRN (09:35)
[2023-12-29] MEDS ORDERED: Insulin Regular 100 UNIT/ML 10ML Vial SC SCH (11:30)
[2023-12-29] MEDS ORDERED: Ketorolac Tromethamine 15mg Vial IV SCH (12:00)
[2023-12-29] MEDS ORDERED: Trospium Chloride 20 MG Tab PO SCH (16:30)
[2023-12-29] MEDS ORDERED: Carvedilol 6.25 MG Tab PO SCH (17:00)
[2023-12-29] MEDS ORDERED: MetFORMIN HCl 500 mg PO SCH (17:00)
--- NOTE | 2023-12-29 17:39 | NUR ---
SHIFT SUMMARY PT A&OX4, VSS/RA, MARC PO, VOIDING, AMB FWW/GB AND UP TO CHAIR/PT EVAL'D, PAIN MANAGED, IVF/ABX PER EMAR. WILL REPORT TO ONCOMING NOC RN.
[2023-12-29] MEDS ORDERED: Pregabalin 50 MG Capsule PO SCH (21:00)
[2023-12-29] MEDS ORDERED: Docusate Sodium 100 MG Cap PO SCH (21:00)
[2023-12-29] MEDS ORDERED: Rosuvastatin Calcium 10 MG Tab PO SCH (21:00)
[2023-12-29] MEDS ORDERED: Sertraline HCl 100 MG Tab PO SCH (21:00)
[2023-12-30 04:05] VITALS: BP 123/86
--- NOTE | 2023-12-30 05:36 | NUR ---
SHIFT SUMMARY PT POD 0 RIGHT TOTAL HIP, PT HAS RESTED T/O THE NIGHT. DRESSING C/D/I. PT HAS BEEN UP AND AMBULATNG. VOIDING AND TOLERATING PO INTAKE. POST OP VITALS ARE STABLE. PLAN IS FOR DISCHARGE TODAY.
[2023-12-30 06:16] LABS: BASOPHILS ABSOLUTE AUTO 0.01 K/mm3 (0.00-0.23); BASOPHILS PERCENT AUTO 0 % (0-2); EOSINOPHILS PERCENT AUTO 0 % (0-6); Hematocrit 32.2 % (33.0-51.0); Hemoglobin 10.1 g/dL (11.5-16.0); IMMATURE GRAN ABSOLUTE AUTO 0.08 K/mm3 (0.00-0.10); IMMATURE GRAN PERCENT AUTO 1 % (0-1); LYMPHOCYTES ABSOLUTE AUTO 0.82 K/mm3 (0.84-5.20); LYMPHOCYTES PERCENT AUTO 7 % (21-46); MONOCYTES ABSOLUTE AUTO 0.85 K/mm3 (0.16-1.47); MONOCYTES PERCENT AUTO 7 % (4-13); Mean Corpuscular HGB 29.3 pg (26.0-34.0); Mean Corpuscular HGB Conc 31.4 g/dL (31.5-36.5); Mean Corpuscular Volume 93 fL (80-100); Mean Platelet Volume 10.8 fL (9.1-12.4); NEUTROPHILS ABSOLUTE AUTO 10.24 K/mm3 (1.96-9.15); NEUTROPHILS PERCENT AUTO 85 % (41-73); Platelet Count 199 K/mm3 (150-400); RDW Coefficient Variation 14.1 % (11.7-14.2); RDW Standard Deviation 47.9 fL (35.1-46.3); Red Blood Cell Count 3.45 M/mm3 (3.80-5.20)
[2023-12-30 06:37] LABS: Bun/Creatinine Ratio 19.4 (12.0-20.0); Calcium, Blood 8.9 mg/dL (8.5-10.1); Creatinine, Blood 0.93 mg/dL (0.40-1.00); Potassium, Blood 4.2 mmol/L (3.5-5.5)
[2023-12-30 07:11] VITALS: BP 107/54
[2023-12-30] MEDS ORDERED: Pioglitazone HCl 15 MG Tab PO SCH (09:00)
[2023-12-30] MEDS ORDERED: Losartan Potassium 50 MG Tab PO SCH (09:00)
[2023-12-30] MEDS ORDERED: Apixaban 5 MG Tab PO SCH (09:00)
--- NOTE | 2023-12-30 12:40 | NUR ---
DISCHARGE POD1 R JUSTIN, AQUACEL CDI, TEDS/POLAR MADHU. A&OX4, VSS/RA, MARC PO, VOIDING, AMB SBA FWW, UP TO CHAIR, WORKED WITH PHYSICAL THERAPY, IV DC'D. DC INS PROVIDED. PT REP UNDERSTANDING THOSE INSTRUCTIONS INCLUDING DRESSING CHANGES, RESUME ELIQUIS, PAIN MANAGEMENT, HOW/WHEN TO TAKE BP TO EVALUATE ALONG WITH PAIN MEDS/BP MEDS, STOOL SOFTENER, SHORT FREQ AMB/ICE AND ELEVATE AT REST, OK TO SHOWER ONLY. LEFT FLOOR VIA WC WITH MARKETING EDUCATION TEACHER TO GO HOME WITH SON WITH DC INS, POLAR MADHU, AQUACEL DRESSINGS.
== END 2023-12-30 11:20 | disposition home or self-care (01) ==
LOC: ORSCMMR 06:11 → ORD 07:30 → SURS 09:48 → ORSCMMR 09:48 → SURS 12-30 11:20 → ORSCMMR 12-30 11:20
PROVIDERS: Orthopaedic Surgery
PROC: 0SR90JZ Replacement of Right Hip Joint with Synthetic Substitute, Open Approach (ICD-10-PCS; principal; 2023-12-29 07:30)
DX: M16.11 Unilateral primary osteoarthritis, right hip (principal); Z95.0 Presence of cardiac pacemaker; Z87.891 Personal history of nicotine dependence; I48.91 Unspecified atrial fibrillation; Z79.01 Long term (current) use of anticoagulants; I10 Essential (primary) hypertension; E11.9 Type 2 diabetes mellitus without complications; M79.7 Fibromyalgia; Z79.84 Long term (current) use of oral hypoglycemic drugs; Z79.899 Other long term (current) drug therapy
CPT/HCPCS: 36415; 72170; 80048; 82947; 85025; 97110; 97116; 97162; A9270; C1776; J0171; J0690; J0735; J1100; J1815; J1885; J2250; J2371; J2405; J2704; J2795; J3010; J7120

== ENCOUNTER 2024-01-06 21:07 | Emergency (ER) | payer BC, OTHER ==
[~2024-01-06] VITALS: Ht 172.7 cm; Wt 90.7 kg
[2024-01-06 22:09] LABS: Source, Urine Clean Catch
[2024-01-06 22:35] LABS: Bilirubin, Urine 1+ (Neg); Blood, Urine 5+ (Neg); Glucose Qualitative, Urine Neg (Neg); Ketones, Urine 1+ (Neg); Leukocyte Esterase, Urine 3+ (Neg); Nitrite, Urine Neg (Neg); Protein, Urine 3+ (Neg); Urobilinogen, Urine 2+ (Normal)
[2024-01-06 22:37] LABS: Appearance, Urine Turbid (Clear); Bacteria Many /hpf; Color, Urine Yellow (P-Yellow); Squamous Epithelial Cells Not Seen /hpf (Few); White Blood Cells, Urine TNTC /hpf (0-5)
[2024-01-07] MEDS ORDERED: Cephalexin Monohydrate 500 MG Cap PO ONE (00:35)
[2024-01-07] MEDS ORDERED: CEPH500 PO (00:36)
[2024-01-07] MEDS ORDERED: Pyridium100 MG PO (00:36)
[2024-01-07 01:05] VITALS: BP 134/93
== END 2024-01-07 01:17 | disposition home or self-care (01) ==
LOC: ER 21:07
PROVIDERS: Physician Assistant
DX: N39.0 Urinary tract infection, site not specified (principal); M19.90 Unspecified osteoarthritis, unspecified site; I10 Essential (primary) hypertension; E11.9 Type 2 diabetes mellitus without complications; F17.210 Nicotine dependence, cigarettes, uncomplicated; Z86.73 Personal history of transient ischemic attack (TIA), and cerebral infarction without residual deficits; Z79.84 Long term (current) use of oral hypoglycemic drugs; Z79.899 Other long term (current) drug therapy; Z88.5 Allergy status to narcotic agent; Z88.8 Allergy status to other drugs, medicaments and biological substances
CPT/HCPCS: 81001; 87077; 87086; 87186; 99283; A9270

== ENCOUNTER → 2024-01-21 | Outpatient (CLI) | payer BC, OTHER | LOC: LAB 17:11 → LAB SHORT 17:11 | DX: R30.9 Painful micturition, unspecified (principal); Z87.440 Personal history of urinary (tract) infections | CPT/HCPCS: 87077; 87086; 87186 ==

== ENCOUNTER 2024-03-18 12:10 | Emergency (ER) | payer BC, OTHER ==
[~2024-03-18] VITALS: Ht 170.2 cm; Wt 90.7 kg
[2024-03-18 12:18] VITALS: BP 131/86
[2024-03-18 12:46] LABS: BASOPHILS ABSOLUTE AUTO 0.05 K/mm3 (0.00-0.23); BASOPHILS PERCENT AUTO 1 % (0-2); EOSINOPHILS ABSOLUTE AUTO 0.18 K/mm3 (0.00-0.68); EOSINOPHILS PERCENT AUTO 4 % (0-6); Hemoglobin 11.2 g/dL (11.5-16.0); IMMATURE GRAN ABSOLUTE AUTO 0.01 K/mm3 (0.00-0.10); IMMATURE GRAN PERCENT AUTO 0 % (0-1); LYMPHOCYTES ABSOLUTE AUTO 1.33 K/mm3 (0.84-5.20); LYMPHOCYTES PERCENT AUTO 26 % (21-46); MONOCYTES ABSOLUTE AUTO 0.29 K/mm3 (0.16-1.47); MONOCYTES PERCENT AUTO 6 % (4-13); Mean Corpuscular HGB 28.4 pg (26.0-34.0); Mean Corpuscular HGB Conc 31.1 g/dL (31.5-36.5); Mean Corpuscular Volume 91 fL (80-100); Mean Platelet Volume 10.2 fL (9.1-12.4); NEUTROPHILS ABSOLUTE AUTO 3.25 K/mm3 (1.96-9.15); NEUTROPHILS PERCENT AUTO 64 % (41-73); Platelet Count 238 K/mm3 (150-400); RDW Coefficient Variation 14.8 % (11.7-14.2); RDW Standard Deviation 49.7 fL (35.1-46.3); Red Blood Cell Count 3.94 M/mm3 (3.80-5.20); White Blood Cell Count 5.11 K/mm3 (4.00-11.30)
[2024-03-18 13:05] LABS: Albumin, Blood 3.7 g/dL (3.4-5.0); Albumin/Globulin Ratio 1.2 (0.8-1.8); Bilirubin, Total 0.4 mg/dL (0.1-1.0); Bun/Creatinine Ratio 17.3 (12.0-20.0); Calcium, Blood 9.3 mg/dL (8.5-10.1); Creatinine, Blood 0.81 mg/dL (0.40-1.00); Potassium, Blood 4.6 mmol/L (3.5-5.5); Total Protein, Blood 6.7 g/dL (6.4-8.2)
== END 2024-03-18 14:15 | disposition left against medical advice (07) ==
LOC: ER 12:10
PROVIDERS: Student in an Organized Health Care Education/Training Program
DX: R42 Dizziness and giddiness (principal); Z53.29 Procedure and treatment not carried out because of patient's decision for other reasons
CPT/HCPCS: 71046; 80053; 84484; 85025; 93005; 93010; 99283-25

== ENCOUNTER → 2024-08-26 | Outpatient (CLI) | payer BC, OTHER | END | disposition home or self-care (01) | LOC: LAB 16:45 → LAB SHORT 16:45 | DX: R30.0 Dysuria (principal) | CPT/HCPCS: 87077; 87086; 87186 ==

== ENCOUNTER 2025-01-09 20:29 | Emergency (ER) | payer BC, MEDICARE ==
[~2025-01-09] VITALS: Ht 170.2 cm; Wt 90.7 kg
[2025-01-09 20:43] VITALS: BP 119/80
[2025-01-09 21:11] LABS: BASOPHILS ABSOLUTE AUTO 0.05 K/mm3 (0.00-0.23); BASOPHILS PERCENT AUTO 1 % (0-2); EOSINOPHILS ABSOLUTE AUTO 0.09 K/mm3 (0.00-0.68); EOSINOPHILS PERCENT AUTO 1 % (0-6); Hematocrit 38.6 % (33.0-51.0); Hemoglobin 12.5 g/dL (11.5-16.0); IMMATURE GRAN ABSOLUTE AUTO 0.04 K/mm3 (0.00-0.10); IMMATURE GRAN PERCENT AUTO 1 % (0-1); LYMPHOCYTES ABSOLUTE AUTO 1.39 K/mm3 (0.84-5.20); LYMPHOCYTES PERCENT AUTO 22 % (21-46); MONOCYTES ABSOLUTE AUTO 0.46 K/mm3 (0.16-1.47); MONOCYTES PERCENT AUTO 7 % (4-13); Mean Corpuscular HGB Conc 32.4 g/dL (31.5-36.5); Mean Corpuscular Volume 90 fL (80-100); NEUTROPHILS ABSOLUTE AUTO 4.19 K/mm3 (1.96-9.15); NEUTROPHILS PERCENT AUTO 68 % (41-73); NRBC ABSOLUTE 0.00 K/mm3 (0.00-0.02); NRBC Auto 0.0 /100 WBC (0.0-0.2); Platelet Count 222 K/mm3 (150-400); RDW Coefficient Variation 15.3 % (11.7-14.2); RDW Standard Deviation 50.1 fL (35.1-46.3)
[2025-01-09 21:41] LABS: Alanine Aminotransfer (ALT/SGP 24.0 U/L (12-78); Albumin, Blood 3.7 g/dL (3.4-5.0); Albumin/Globulin Ratio 1.1 (0.8-1.8); Anion Gap 10.0 mmol/L (3-11); Aspartate Aminotrans (AST/SGOT 20.0 U/L (12-37); Bilirubin, Total 0.5 mg/dL (0.1-1.0); Blood Urea Nitrogen 18.0 mg/dL (8-24); CO2, Blood 21.0 mmol/L (21-32); Calcium, Blood 8.8 mg/dL (8.5-10.1); Chloride, Blood 110.0 mmol/L (98-108); Creatinine, Blood 0.86 mg/dL (0.40-1.00); Globulin, Blood 3.3 g/dL (2.2-4.0); Glucose, Blood 133.0 mg/dL (70-99); Magnesium, Blood 2.0 mg/dL (1.6-2.4); Potassium, Blood 3.9 mmol/L (3.5-5.5); Sodium, Blood 137.0 mmol/L (136-145); Total Protein, Blood 7.0 g/dL (6.4-8.2)
[2025-01-09] MEDS ORDERED: DICY20 PO (23:48)
[2025-01-09] MEDS ORDERED: ONDA4 PO (23:48)
== END 2025-01-10 00:29 | disposition home or self-care (01) ==
LOC: ER 20:29
PROVIDERS: Emergency Medicine
DX: K52.9 Noninfective gastroenteritis and colitis, unspecified (principal); I10 Essential (primary) hypertension; F17.210 Nicotine dependence, cigarettes, uncomplicated; Z98.84 Bariatric surgery status; Z95.810 Presence of automatic (implantable) cardiac defibrillator
CPT/HCPCS: 74177; 80053; 83690; 83735; 85025; 93005; 93010; 99284-25; Q9967

== ENCOUNTER 2025-05-19 21:25 | Emergency (ER) | payer BC, MEDICARE ==
[~2025-05-19] VITALS: Ht 170.2 cm; Wt 95.2 kg
[~2025-05-19 21:25] MED LIST changes: +DICY20 PO; +ONDA4 PO
[2025-05-19 21:30] VITALS: BP 129/78
== END 2025-05-20 00:29 | disposition home or self-care (01) ==
LOC: ER 21:25
DX: S93.401A Sprain of unspecified ligament of right ankle, initial encounter (principal); E11.9 Type 2 diabetes mellitus without complications; M19.90 Unspecified osteoarthritis, unspecified site; E78.5 Hyperlipidemia, unspecified; I10 Essential (primary) hypertension; F17.210 Nicotine dependence, cigarettes, uncomplicated; W01.0XXA Fall on same level from slipping, tripping and stumbling without subsequent striking against object, initial encounter; Z86.73 Personal history of transient ischemic attack (TIA), and cerebral infarction without residual deficits; Z79.899 Other long term (current) drug therapy; Z79.84 Long term (current) use of oral hypoglycemic drugs; Z88.5 Allergy status to narcotic agent; Z88.1 Allergy status to other antibiotic agents; Z88.8 Allergy status to other drugs, medicaments and biological substances
CPT/HCPCS: 73600; 73620; 99283-25

== ENCOUNTER 2025-06-26 13:15 | Emergency (ER) | payer BC, MEDICARE ==
[~2025-06-26] VITALS: Ht 170.2 cm; Wt 102.1 kg
[2025-06-26 14:16] LABS: BASOPHILS ABSOLUTE AUTO 0.05 K/mm3 (0.00-0.23); BASOPHILS PERCENT AUTO 1 % (0-2); EOSINOPHILS ABSOLUTE AUTO 0.11 K/mm3 (0.00-0.68); EOSINOPHILS PERCENT AUTO 2 % (0-6); Hematocrit 37.5 % (33.0-51.0); Hemoglobin 12.3 g/dL (11.5-16.0); IMMATURE GRAN ABSOLUTE AUTO 0.03 K/mm3 (0.00-0.10); IMMATURE GRAN PERCENT AUTO 1 % (0-1); LYMPHOCYTES ABSOLUTE AUTO 1.17 K/mm3 (0.84-5.20); LYMPHOCYTES PERCENT AUTO 22 % (21-46); MONOCYTES ABSOLUTE AUTO 0.28 K/mm3 (0.16-1.47); MONOCYTES PERCENT AUTO 5 % (4-13); Mean Corpuscular HGB Conc 32.8 g/dL (31.5-36.5); Mean Corpuscular Volume 91 fL (80-100); NEUTROPHILS ABSOLUTE AUTO 3.60 K/mm3 (1.96-9.15); NEUTROPHILS PERCENT AUTO 69 % (41-73); NRBC ABSOLUTE 0.00 K/mm3 (0.00-0.02); NRBC Auto 0.0 /100 WBC (0.0-0.2); Platelet Count 185 K/mm3 (150-400); RDW Coefficient Variation 14.0 % (11.7-14.2); RDW Standard Deviation 46.8 fL (35.1-46.3)
[2025-06-26 14:41] LABS: Alanine Aminotransfer (ALT/SGP 21.0 U/L (12-78); Albumin, Blood 3.8 g/dL (3.4-5.0); Albumin/Globulin Ratio 1.3 (0.8-1.8); Anion Gap 10.0 mmol/L (3-11); Aspartate Aminotrans (AST/SGOT 14.0 U/L (12-37); Bilirubin, Total 0.8 mg/dL (0.1-1.0); Blood Urea Nitrogen 11.0 mg/dL (8-24); CO2, Blood 24.0 mmol/L (21-32); Calcium, Blood 9.2 mg/dL (8.5-10.1); Chloride, Blood 107.0 mmol/L (98-108); Creatinine, Blood 0.74 mg/dL (0.40-1.00); Globulin, Blood 3.0 g/dL (2.2-4.0); Glucose, Blood 224.0 mg/dL (70-99); Potassium, Blood 4.1 mmol/L (3.5-5.5); Sodium, Blood 137.0 mmol/L (136-145); Total Protein, Blood 6.8 g/dL (6.4-8.2)
[2025-06-26 17:45] VITALS: BP 138/92
== END 2025-06-26 17:51 | disposition home or self-care (01) ==
LOC: ER 13:15
PROVIDERS: Student in an Organized Health Care Education/Training Program
DX: H81.399 Other peripheral vertigo, unspecified ear (principal); I10 Essential (primary) hypertension; E11.9 Type 2 diabetes mellitus without complications; I25.10 Atherosclerotic heart disease of native coronary artery without angina pectoris; E78.5 Hyperlipidemia, unspecified; F17.210 Nicotine dependence, cigarettes, uncomplicated; Z88.8 Allergy status to other drugs, medicaments and biological substances; Z88.5 Allergy status to narcotic agent; Z79.899 Other long term (current) drug therapy; Z79.01 Long term (current) use of anticoagulants
CPT/HCPCS: 80053; 84484; 85025; 93005; 93010; 99284-25; A9270

== ENCOUNTER → 2025-06-30 | Outpatient (CLI) | payer BC, MEDICARE ==
[2025-07-03 17:51] LABS: Campylobacter Sp Not Detected (NOT DETECT); E. Coli O157 Not Detected (NOT DETECT); Enteroaggregative E. coli-EAEC Not Detected (NOT DETECT); Enteropathogenic E. coli-EPEC Not Detected (NOT DETECT); Enterotoxigenic E. coli-ETEC Not Detected (NOT DETECT); Salmonella Sp Not Detected (NOT DETECT); Shiga Toxin-prod E. coli-STEC Not Detected (NOT DETECT); Shigella/Enteroin E. coli-EIEC Not Detected (NOT DETECT); Vibrio Sp Not Detected (NOT DETECT)
[2025-07-05 10:00] LABS: CALPROTECTIN,FECAL 37 ug/g (<=49)
== END ==
LOC: LAB 17:10 → LAB SHORT 17:10
PROVIDERS: Nurse Practitioner Family
DX: R19.4 Change in bowel habit (principal)
CPT/HCPCS: 83993; 87507